=== PATIENT | male | born 1965 | race Two or more races ===

== ENCOUNTER 2024-11-16 08:44 | Inpatient (IN) | payer OTHER ==
[~2024-11-16] VITALS: Ht 182.9 cm; Wt 134.4 kg
--- NOTE | 2024-11-16 08:49 | ECG ---
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
--- NOTE | 2024-11-16 09:08 | DVH ---
EXAM: XY CHEST PORTABLE HISTORY: chest pain COMPARISON: None TECHNIQUE: PA upright view of the chest was performed. FINDINGS: No pneumothorax, consolidative infiltrates, or pulmonary edema. The heart is enlarged. IMPRESSION: Cardiomegaly without evidence of acute intrathoracic process.
[2024-11-16 09:09] LABS: Basophils # (auto) 0.1 10 ^3/uL (0-0.2); Basophils % (auto) 0.9 % (0.0-2.0); Eosinophils # (auto) 0.2 10 ^3/uL (0-0.8); Hematocrit 44.6 % (41.0-53.0); Hemoglobin 14.5 g/dL (13.5-17.5); Lymphocytes # (auto) 1.5 10 ^3/uL (0.4-5.4); Lymphocytes % (auto) 25.5 % (10.0-50.0); Mean Corpuscular Hemoglobin 29.6 pg (28.0-32.0); Mean Corpuscular Hgb Conc. 32.4 g/dL (32.0-36.0); Mean Corpuscular Volume 91.3 fL (80.0-100.0); Monocytes # (auto) 0.7 10 ^3/uL (0-1.3); Monocytes % (auto) 11.5 % (0.0-12.0); Neutrophils # (auto) 3.3 10 ^3/uL (1.6-8.6); Neutrophils % (auto) 58.1 % (37.0-80.0); Nucleated Red Blood Cells % 0.5 %; Platelet Count (auto) 217 10^3/uL (140-450); Red Blood Cells 4.89 10^6/uL (4.5-5.90); Red Cell Distribution Width 15.6 % (11.8-14.3); White Blood Cell 5.7 10^3/uL (4.4-10.8)
[2024-11-16 09:25] LABS: Alanine Aminotransferase 18 U/L (7-40); Alkaline Phosphatase 62 U/L (46-116); Anion Gap 8 (5-15); Aspartate Aminotransferase 17 U/L (13-40); BUN/Creatinine Ratio 7.5 (10.0-20.0); Blood Urea Nitrogen 10 mg/dL (9-23); Calcium 9.3 mg/dL (8.7-10.4); Carbon Dioxide 21 mmol/L (20-31); Magnesium 2.1 mg/dL (1.6-2.6); Potassium 4.1 mmol/L (3.5-5.1); Sodium 140 mmol/L (136-145)
[2024-11-16 09:26] LABS: Albumin 4.5 g/dL (3.2-4.8); Bilirubin, Total 0.5 mg/dL (0.2-1.0); Total Protein 6.7 g/dL (5.7-8.2)
[2024-11-16 09:30] LABS: Chloride 111 mmol/L (98-107); Glucose 119 mg/dL (74-106)
--- NOTE | 2024-11-16 09:38 | ED.PDOC ---
HPI Comments 59 year old male presents to the ED with a chief complaint of chest pain onset today around 07:00. Patient states he woke up today experiencing substernal chest pain with no radiation. Patient has a scheduled hip surgery for this week. PMHx of CAD, HTN. Denies shortness of breath, headache, dizziness, nausea, vomiting, diarrhea, congestion. No other symptoms or modifying factors present at this time. Chief Complaint: Chest Pain Time Seen by MD: 09:00 Reviewed Notes: Medications, Allergies Allergies: Coded Allergies: NO KNOWN ALLERGIES (Unverified , 11/16/24) Information Source: Patient Mode of Arrival: Ambulatory Severity: Moderate Timing: Hours Duration: Since onset Prehospital treatment: None Location: Substernal Radiation: No Radiation Quality: Sharp Cardiac Risk Factors: HTN PE Risk Factors: None History of: Angioplasty Modifying Factors: Nothing Associated Signs and Symptoms: None Past Medical History PAST MEDICAL HISTORY: CAD, HTN Surgical History (Other): angioplasty Family History Family History: Unknown Social History Smoker: Non-Smoker Alcohol: Denies ETOH Use Drugs: Denies Drug Use Lives In: Home Constitutional: denies: chills, diaphoresis, fatigue, fever, malaise, sweats, weakness, others EENTM: denies: blurred vision, double vision, ear bleeding, ear discharge, ear drainage, ear pain, ear ringing, eye pain, eye redness, hearing loss, mouth pain, mouth swelling, nasal discharge, nose bleeding, nose congestion, nose pain, photophobia, tearing, throat pain, throat swelling, voice changes, others Respiratory: denies: cough, hemoptysis, orthopnea, SOB at rest, shortness of breath, SOB with excertion, stridor, wheezing, others Cardiovascular: reports: chest pain; denies: dizzy spells, diaphoresis, Dyspnea on exertion, edema, irregular heart beat, left arm pain, lightheadedness, palpitations, PND, syncope, others Gastrointestinal: denies: abdomen distended, abdominal pain, blood streaked bowels, constipated, diarrhea, dysphagia, difficulty swallowing, hematemesis, melena, nausea, poor appetite, poor fluid intake, rectal bleeding, rectal pain, vomiting, others Genitourinary: denies: burning, dysuria, flank pain, frequency, hematuria, incontinence, penile discharge, penile sore, pain, testicle pain, testicle swelling, urgency, others Neurological: denies: dizziness, fainting, headache, left sided numbness, left sided weakness, numbness, paresthesia, pre-existing deficit, right sided numbness, right sided weakness, seizure, speech problems, tingling, tremors, weakness, others Musculoskeletal: denies: back pain, gout, joint pain, joint swelling, muscle pain, muscle stiffness, neck pain, others Integumetry: denies: bruises, change in color, change in hair/nails, dryness, laceration, lesions, lumps, rash, wounds, others Allergic/Immunocompromised: denies: Difficulty Healing, Frequent Infections, Hives, Itching, others Hematologic/Lymphatic: denies: anemia, blood clots, easy bleeding, easy bruising, swollen glands, others Endocrine: denies: excessive hunger, excessive sweating, excessive thirst, excessive urination, flushing, intolerance to cold, intolerance to heat, unexplained weight gain, unexplained weight loss, others Psychiatric: denies: anxiety, bipolar disorder, depression, hopeless, panic disorder, schizophrenia, sleepless, suicidal, others All Other Systems: Reviewed and Negative Physical Exam General Appearance: Moderate Distress HEENT: Normal ENT Inspection, Pharynx Normal, TMs Normal Neck: Full Range of Motion, Non-Tender, Normal, Normal Inspection Respiratory: Chest Non-Tender, Lungs Clear, No Accessory Muscle Use, No Respiratory Distress, Normal Breath Sounds Cardiovascular: No Edema, No JVD, No Murmur, No Gallop, Normal Peripheral Pulses, Regular Rate/Rhythm Breast Exam: Deferred Gastrointestinal: No Organomegaly, Non Tender, No Pulsatile Mass, Normal Bowel Sounds, Soft Genitalia: Deferred Pelvic: Deferred Rectal: Deferred Extremities: No calf tenderness, Normal capillary refill, Normal inspection, Normal range of motion, Non-tender, No pedal edema Musculoskeletal : Apperance: Normal Neurologic: Alert, machine ii engraver II-XII nml as Tested, No Motor Deficits, Normal Affect, Normal Mood, No Sensory Deficits Cerebellar Function: Normal Reflexes: Normal Skin: Dry, Normal Color, Warm Peripheral Pulses: 3+ Radial (R), 3+ Radial (L) Lymphatic: No Adenopathy Was a procedure done? Was a procedure done?: No CP Differential Dx Differential Diagnosis: A-fib, A-Flutter, Angina, Anxiety / Panic Attack, Atrial Dysrhythmia, Electrolyte Disorder X-Ray, Labs, Meds, VS Vital Signs Date Time Temp Pulse Resp B/P (MAP) Pulse Ox O2 Delivery O2 Flow Rate FiO2 11/16/24 10:56 60 16 130/75 (93) 94 11/16/24 08:59 61 11/16/24 08:48 98.3 61 16 145/91 (109) 98 11/16/24 08:48 67 Lab Test 11/16/24 10:57 11/16/24 10:02 11/16/24 08:52 Range/Units Urine Color Pending Urine Clarity Pending Urine pH Pending Urine Specific [place] Pending Urine Protein Pending Urine Ketones Pending Urine Blood Pending Urine Nitrite Pending Urine Bilirubin Pending Urine Urobilinogen Pending Urine Leukocyte Esterase Pending Urine RBC Pending Urine Microscopic WBC Pending Urine Squamous Epithelial Cells Pending Urine Bacteria Pending Urine Glucose Pending Troponin I High Sensitivity 34 9 </=54 ng/L White Blood Count 5.7 4.4-10.8 10^3/uL Red Blood Count 4.89 4.5-5.90 10^6/uL Hemoglobin 14.5 13.5-17.5 g/dL Hematocrit 44.6 41.0-53.0 % Mean Corpuscular Volume 91.3 80.0-100.0 fL Mean Corpuscular Hemoglobin 29.6 28.0-32.0 pg Mean Corpuscular Hemoglobin Concent 32.4 32.0-36.0 g/dL Red Cell Distribution Width 15.6 H 11.8-14.3 % Platelet Count 217 140-450 10^3/uL Mean Platelet Volume 8.2 6.9-10.8 fL Neutrophils (%) (Auto) 58.1 37.0-80.0 % Lymphocytes (%) (Auto) 25.5 10.0-50.0 % Monocytes (%) (Auto) 11.5 0.0-12.0 % Eosinophils (%) (Auto) 4.0 0.0-7.0 % Basophils (%) (Auto) 0.9 0.0-2.0 % Neutrophils # (Auto) 3.3 1.6-8.6 10 ^3/uL Lymphocytes # (Auto) 1.5 0.4-5.4 10 ^3/uL Monocytes # (Auto) 0.7 0-1.3 10 ^3/uL Eosinophils # (Auto) 0.2 0-0.8 10 ^3/uL Basophils # (Auto) 0.1 0-0.2 10 ^3/uL Nucleated Red Blood Cells 0.5 % Platelet Estimate Adequate Sodium Level 140 136-145 mmol/L Potassium Level 4.1 3.5-5.1 mmol/L Chloride Level 111 H 98-107 mmol/L Carbon Dioxide Level 21 20-31 mmol/L Anion Gap 8 5-15 Blood Urea Nitrogen 10 9-23 mg/dL Creatinine 1.34 H 0.700-1.30 mg/dL Glomerular Filtration Rate Calc 61 >90 mL/min BUN/Creatinine Ratio 7.5 L 10.0-20.0 Serum Glucose 119 H 74-106 mg/dL Calcium Level 9.3 8.7-10.4 mg/dL Magnesium Level 2.1 1.6-2.6 mg/dL Total Bilirubin 0.5 0.2-1.0 mg/dL Aspartate Amino Transferase (AST) 17 13-40 U/L Alanine Aminotransferase (ALT) 18 7-40 U/L Alkaline Phosphatase 62 46-116 U/L Total Protein 6.7 5.7-8.2 g/dL Albumin 4.5 3.2-4.8 g/dL [place] [id number] Ph: [phone] DIAGNOSTIC IMAGING Diagnostic Imaging Report : [id number] Signed PATIENT: EARL STRINGER ACCT: [id number] UNIT: [id number] : 1965 LOC: ER ROOM / BED: / AGE / SEX: 59 / M ADM STATUS: REG ER SERVICE [id number] ORDERING PHYSICIAN: WAYNE MIKE MD PROCEDURE(s): CXRP - CHEST PORTABLE REASON: chest pain ORDER NUMBER(s): [id number], ACCESSION NUMBER(s): [id number] EXAM: XY CHEST PORTABLE HISTORY: chest pain COMPARISON: None TECHNIQUE: PA upright view of the chest was performed. FINDINGS: No pneumothorax, consolidative infiltrates, or pulmonary edema. The heart is enlarged. IMPRESSION: Cardiomegaly without evidence of acute intrathoracic process. ATED BY: RODOLFO GRIFFITH MD DICTATED DATE/TIME: 11/16/24904 SIGNED BY: RODOLFO GRIFFITH MD SIGNED DATE/TIME: 11/16/24904 CC: Patient alert. Complaining of chest pain. Chest x-ray reviewed does not show any acute changes pain Vitals stable. Cardiomegaly. Had previous cardiac insult. EKG reviewed does not show any acute changes. Continues to have chest pain. Was given aspirin. Echocardiogram. Cardiology consultation. Explained to the patient. Time of 1ST Reevaluation: 09:30 Reevaluation 1ST: Unchanged Patient Education/Counseling: Diagnosis, Treatment, Prognosis Family Education/Counseling: No Family Present Additional Information I reviewed the following notes from patient's past medical encounters: The following tests were ordered, and results were reviewed by me: CBC, XY CHES T,, CMP, MAGNESIUM, TROP -x3, EKG -x3, RBC MORPHOLOGY I reviewed and agreed with the following test results read by other providers: TA CHEST I discussed treatment and results with medical personnel and patient Departure 1 Departure Time of Disposition: 12:14 Impression: Primary Impression: Chest pain of unknown etiology Disposition: ADMITTED INPATIENT Admit to: Med Surg Condition: Guarded Critical Care Note Critical Care Time?: No Stability Stability form required: No Heart Score Heart Score: Heart Score Response (Comments) Value History Slightly Suspicious 0 EKG Normal 0 Age 45-64 1 Risk Factors >3 or Hx ASHD 2 Troponin Normal limit 0 Total 3 I personally scribed for WAYNE MIKE MD ([email or web address]) on 11/16/24 at 09:38. Electronically submitted by Ana Elizabeth ([email or web address]). I personally scribed for WAYNE MIKE MD ([email or web address]) on 11/16/24 at 10:14. Electronically submitted by Ana Elizabeth ([email or web address]). WAYNE MIKE MD Nov 16, 2024 09:38
[2024-11-16 10:53] LABS: Platelet Estimate Adequate
[2024-11-16 12:07] LABS: Urine Bacteria None Seen /hpf (None Seen)
[2024-11-16 12:15] LABS: Urine Blood TRACE /uL (Negative); Urine Clarity Clear (Clear); Urine Color Light-Yellow (Yellow); Urine Protein, UAD TRACE (Negative); Urine Specific Gravity 1.012 (1.001-1.035); Urine Squamous Epithelial Cell None Seen /hpf (<5); Urine Urobilinogen Normal (Negative); Urine WBC < 1 /HPF (0-3)
[2024-11-16] MEDS ORDERED: MORPHINE SULFATE INJ 2 MG/ml SYRG IV PRN (15:15)
[2024-11-16] MEDS ORDERED: ACETAMINOPHEN 325 MG TAB PO PRN (15:15)
[2024-11-16] MEDS ORDERED: DOCUSATE SOD 100 MG CAP PO PRN (15:15)
[2024-11-16] MEDS ORDERED: HYDROcodone-ACET 5/325MG TAB PO PRN (15:15)
[2024-11-16] MEDS ORDERED: NITROGLYCERIN 0.4 MG SL TAB SL PRN (15:15)
[2024-11-16] MEDS ORDERED: ONDANSETRON HCL 4 MG/2 ML VIAL IV PRN (15:15)
[2024-11-16] MEDS ORDERED: METO-289 PO (15:24)
[2024-11-16] MEDS ORDERED: ALLO300T2 PO (15:24)
[2024-11-16] MEDS ORDERED: ROSU40TA47 PO (15:24)
[2024-11-16] MEDS ORDERED: AMLO1TAB22 PO (15:24)
--- NOTE | 2024-11-16 15:46 | DVHHP2 ---
History of Present Illness Reason for Visit: Chest Pain History of Present Illness Tim Castro is a 59-year-old male with past medical history of hypertension, hyperlipidemia, CAD, and previous RI x 2, who comes in with complaints of chest pain. Patient states he had a previous RI in July of 2023, and October 2023. He had balloon angioplasty completed prior and possible stent. Patient is taking Plavix and Xarelto. He states his second RI happened after he went off his blood thinners for a procedure. Patient states he has been off his Plavix and Xarelto since 11/12/2024 because he is scheduled to have a left hip replacement this week. Patient states the pain is on the left side of his chest, radiates down his arm and feels like pressure. Cardiovascular: CAD, HTN, hyperipidemia Rheumatologic: Gout Past Surgical History: Other (PTCA) Smoke: No ALCOHOL: rare Drugs: Marijuana Lives: with Family Domestic Violence: Neg Review of Systems Constitutional: No: Fever, Chills, Sweats, Weakness, Malaise, Other Eyes: No: Pain, Vision change, Conjunctivae inflammation, Eyelid inflammation, Other, Redness ENT: No: Ear pain, Ear discharge, Nose pain, Nose discharge, Nose congestion, Mouth pain, Mouth swelling, Throat pain, Throat swelling, Other Respiratory: No: Cough, Dry, Shortness of breath, SOB with excertion, Wheezing, Hemoptysis, Pleuritic Pain, Sputum, Wheezing, Other Cardiovascular: Chest Pain; No: Palpitations, Orthopnea, Paroxysmal Noc. Dyspnea, Edema, Lt Headedness, Other Gastrointestinal: No: Nausea, Vomiting, Abdominal Pain, Diarrhea, Constipation, Melena, Hematochezia, Other Genitourinary: No Dysuria, No Frequency, No Incontinence, No Hematuria, No Retention, No Other Musculoskeletal: No: other, neck pain, shoulder pain, arm pain, back pain, hand pain, leg pain, foot pain Skin: No: Rash, Lesions, Jaundice, Bruising, Other Neurological: No: Weakness, Numbness, Incoordination, Change in speech, Confusion, Seizures, Other Allergies: Coded Allergies: NO KNOWN ALLERGIES (Unverified , 11/16/24) Medications Current Medications Medications Dose Ordered Sig/Tiffanie Route Start Time Stop Time Status Last Admin Dose Admin Sodium Chloride 10 ml Q8HR IV 11/16/24 22:00 Acetaminophen/ Hydrocodone Bitart 1 tab Q4HP PRN PO 11/16/24 15:15 Ondansetron HCl 4 mg Q4HP PRN IV 11/16/24 15:15 Docusate Sodium 100 mg BIDPRN PRN PO 11/16/24 15:15 Acetaminophen 650 mg Q6HP PRN PO 11/16/24 15:15 Nitroglycerin 0.4 mg Q5MINP PRN SL 11/16/24 15:15 Morphine Sulfate 2 mg Q30M PRN IV 11/16/24 15:15 Exam Vital Signs Vital Signs Date Time Temp Pulse Resp B/P (MAP) Pulse Ox O2 Delivery O2 Flow Rate FiO2 11/16/24 13:49 67 16 139/84 (102) 98 11/16/24 08:48 98.3 General Appearance: Alert, Oriented X3, Cooperative, moderate distress HEENT: Atraumatic, PERRLA Respiratory: Clear to auscultation Cardiovascular: Regular rate, Normal S1 Abdominal: Normal bowel sounds, Soft, No tenderness Extremities: No clubbing, No cyanosis, No edema Skin: No rashes, No breakdown, No significant lesion Neuro: Normal speech, Strength at 5/5 X4 ext, Other (walks with a limp due to left hip pain) Psych/Mental Status: Mental status NL, Mood NL Labs/Xrays Labs Test 11/16/24 15:03 11/16/24 10:57 11/16/24 08:52 Range/Units Urine Color Light-yellow Yellow Urine Clarity Clear Clear Urine pH 7.0 5.0-9.0 Urine Specific [place] 1.012 1.001-1.035 Urine Protein Trace H Negative Urine Ketones Negative Negative Urine Blood Trace H Negative /uL Urine Nitrite Negative Negative Urine Bilirubin Negative Negative Urine Urobilinogen Normal Negative mg/dL Urine Leukocyte Esterase Negative Negative /uL Urine RBC 1 0 - 3 /hpf Urine Microscopic WBC < 1 0-3 /HPF Urine Squamous Epithelial Cells None seen <5 /hpf Urine Bacteria None seen None Seen /hpf Urine Glucose Normal Normal mg/dL White Blood Count 5.7 4.4-10.8 10^3/uL Red Blood Count 4.89 4.5-5.90 10^6/uL Hemoglobin 14.5 13.5-17.5 g/dL Hematocrit 44.6 41.0-53.0 % Mean Corpuscular Volume 91.3 80.0-100.0 fL Mean Corpuscular Hemoglobin 29.6 28.0-32.0 pg Mean Corpuscular Hemoglobin Concent 32.4 32.0-36.0 g/dL Red Cell Distribution Width 15.6 H 11.8-14.3 % Platelet Count 217 140-450 10^3/uL Mean Platelet Volume 8.2 6.9-10.8 fL Neutrophils (%) (Auto) 58.1 37.0-80.0 % Lymphocytes (%) (Auto) 25.5 10.0-50.0 % Monocytes (%) (Auto) 11.5 0.0-12.0 % Eosinophils (%) (Auto) 4.0 0.0-7.0 % Basophils (%) (Auto) 0.9 0.0-2.0 % Neutrophils # (Auto) 3.3 1.6-8.6 10 ^3/uL Lymphocytes # (Auto) 1.5 0.4-5.4 10 ^3/uL Monocytes # (Auto) 0.7 0-1.3 10 ^3/uL Eosinophils # (Auto) 0.2 0-0.8 10 ^3/uL Basophils # (Auto) 0.1 0-0.2 10 ^3/uL Nucleated Red Blood Cells 0.5 % Platelet Estimate Adequate Sodium Level 140 136-145 mmol/L Potassium Level 4.1 3.5-5.1 mmol/L Chloride Level 111 H 98-107 mmol/L Carbon Dioxide Level 21 20-31 mmol/L Anion Gap 8 5-15 Blood Urea Nitrogen 10 9-23 mg/dL Creatinine 1.34 H 0.700-1.30 mg/dL Glomerular Filtration Rate Calc 61 >90 mL/min BUN/Creatinine Ratio 7.5 L 10.0-20.0 Serum Glucose 119 H 74-106 mg/dL Calcium Level 9.3 8.7-10.4 mg/dL Magnesium Level 2.1 1.6-2.6 mg/dL Total Bilirubin 0.5 0.2-1.0 mg/dL Aspartate Amino Transferase (AST) 17 13-40 U/L Alanine Aminotransferase (ALT) 18 7-40 U/L Alkaline Phosphatase 62 46-116 U/L Total Protein 6.7 5.7-8.2 g/dL Albumin 4.5 3.2-4.8 g/dL EXAM: XY CHEST PORTABLE TECHNIQUE: PA upright view of the chest was performed. FINDINGS: No pneumothorax, consolidative infiltrates, or pulmonary edema. The heart is enlarged. IMPRESSION: Cardiomegaly without evidence of acute intrathoracic process. Assessment/Plan Assessment/Plan Assessment: ACS (acute coronary syndrome), Elevated troponin, Hypertension, Gout, CAD, Plan: Admit to Tele, Cardiology consult, Trend troponin, ACS protocol, ASA and statin, Home medications reconciled, Plan discussed with: Patient My Orders Orders - ANDREW BARAHONA Procedure Category Date Status Time Troponin-I Hs LAB 11/16/24 In Process 14:21 Troponin-I Hs LAB 11/16/24 Logged 15:21 Troponin-I Hs LAB 11/16/24 Logged 17:21 Admit ADMIT 11/16/24 Transmitted 15:11 Code Status CODE 11/16/24 Transmitted 15:11 Sodium Chloride Lock PHA 11/16/24 In Process (Saline Lock Ns) 22:00 Hydrocodone-Acet PHA 11/16/24 In Process 5/325mg Tab ([place] 15:15 Ondansetron Hcl PHA 11/16/24 In Process (Zofran) 15:15 Docusate Sodium PHA 11/16/24 In Process Capsule (Colace 15:15 Complete Blood Count LAB 11/17/24 Verified 04:00 Comprehensive LAB 11/17/24 Verified Metabolic Panel 04:00 Cardiac DIET 11/16/24 Transmitted Diet-2gna,Lofat,Lochol Dinner Condition: Serious BIGG 11/16/24 In Process 15:11 Acetaminophen Tablet PHA 11/16/24 In Process (Tylenol Tablet) 15:15 Nitroglycerin PHA 11/16/24 In Process Sublingual (Ntrostat 15:15 Morphine Sulfate PHA 11/16/24 In Process Injection 15:15 Stat Ekg For Chest BIGG 11/16/24 In Process Pain 15:11 Notify Md Of Changes BIGG 11/16/24 In Process From Base 15:11 Stock Receiver For BIGG 11/16/24 In Process 24 Hours 15:11 Emergency Dysrhythmia BIGG 11/16/24 In Process Protocol 15:11 Rhythm Strips Once BIGG 11/16/24 In Process Every Shift 15:11 Oxygen By Nasal RT 11/16/24 Transmitted Cannula 15:11 * Cardiology Consult CONS 11/16/24 Transmitted 15:11 Amlodipine Tablet PHA 11/17/24 Transmitted (Norvasc Tablet) 10:00 Metoprolol Xl PHA 11/17/24 Transmitted Succinate (Toprol Xl) 10:00 (Nf) Allopurinol PHA 11/17/24 Transmitted 10:00 (Nf) Rosuvastatin PHA 11/16/24 Transmitted Calcium 22:00 Date of Service: Nov 16, 2024 Billing Provider: ANDREW BARAHONA Common Visit Codes: [id number] INP/OBS CARE (MOD) ANDREW BARAHONA Nov 16, 2024 15:46
[2024-11-16] MEDS: ASPirin-EC 325mg tab PO ONE (16:29)
--- NOTE | 2024-11-16 17:19 | ECG ---
[facility] Test Date: 2024-11-16 Test Time: 17:18:39 Pat Name: EARL STRINGER Department: 12 Room: [address] [place] [address] A Gender: M Blending Line Attendant: JANET : 1965 Requested By: WAYNE MIKE Order Number: [id number] Reading MD: Mitul Castillo Measurements Intervals [place] Rate: 56 P: 39 ID: [id number] QRS: 51 QRSD: 111 T: -18 QT: 460 QTc: 444 Interpretive Statements Sinus rhythm Ventricular premature complex Low voltage, precordial leads Nonspecific T abnormalities, inferior leads Electronically Signed On 11-16-2024 21:20:22 PST by Mitul Castillo Please click the below link to view image of tracing.
[2024-11-16 17:20] VITALS: PULSE 58; RESP 17; O2SAT 98
--- NOTE | 2024-11-16 17:49 | DVHINCON2 ---
Date Seen: Nov 16, 2024 Referring Physician JUANA Upton Reason for Consultation Elevated trop History of Present Illness This is a pleasant 59-year-old man who presented to the emergency room with a chief complaint of chest pain since 0700 today. Describes his chest pain as left-sided, nonradiating, non provoked, constant in nature, pressure-like, and associated with mild shortness of breath. The patient underwent multiple 12 lead electrocardiogram revealing progressive ST segment depression to inferior leads. Serial troponin levels are trending up with latest in the 600s ng/L. He has a significant medical history for coronary artery disease including a cardiac catheterization with catheter based intervention including two JENNIFER in a hospital in [place] on 2022 and cardiac catheterization with balloon angioplasty in [place] on 10/2023 and current Plavix therapy. The patient also reports a history of an unspecified blood clot for which he takes Xarelto. Follows up in the outpatient setting with [facility] Dr. Steward with latest appointment 10 days ago. States he is compliant with his medical therapy at home. Other medical history includes hypertension, dyslipidemia, gout, severe right hip arthritis awaiting surgical repair, obesity, and occasional alcohol/cannabinoid use. Past Medical History Past medical history reviewed. No other significant than mentioned above. Past Surgical History PTCA with balloon angioplasty, 10/2023 PTCA including two JENNIFER, 2022 Family History Family history reviewed. Social History See HPI. Allergies: Coded Allergies: NO KNOWN ALLERGIES (Unverified , 11/16/24) Home Meds Reported Medications Allopurinol (Allopurinol) 300 Mg Tab, 1 TAB PO DAILY 11/16/24 Metoprolol Succinate (Metoprolol Succinate Er) 50 Mg Tab, 1 TAB PO DAILY 11/16/24 Rosuvastatin Calcium (Rosuvastatin Calcium) 40 Mg Tab, 1 TAB PO HS 11/16/24 Amlodipine Besylate (Amlodipine Besylate) 5 Mg Tab, 1 TAB PO DAILY 11/16/24 Home Meds Home medications reviewed. Current Medications Current Medications Medications (Trade) Dose Ordered Sig/Tiffanie Route PRN Reason Start Time Stop Time Status Last Admin Sodium Chloride (Saline Lock Ns) 10 ml Q8HR IV 11/16/24 22:00 Acetaminophen/ Hydrocodone Bitart (Gem 5/325MG Tab) 1 tab Q4HP PRN PO MODERATE PAIN (4-6 PAIN SCALE) 11/16/24 15:15 Ondansetron HCl (Zofran) 4 mg Q4HP PRN IV NAUSEA / VOMITING 11/16/24 15:15 Docusate Sodium (Colace Capsule) 100 mg BIDPRN PRN PO FOR CONSTIPATION 11/16/24 15:15 Acetaminophen (Tylenol Tablet) 650 mg Q6HP PRN PO PAIN SCALE 1-3 OR TEMP>100.4 11/16/24 15:15 Nitroglycerin (Ntrostat Sublingual) 0.4 mg Q5MINP PRN SL FOR CHEST PAIN 11/16/24 15:15 Morphine Sulfate 2 mg Q30M PRN IV FOR CHEST PAIN 11/16/24 15:15 Amlodipine Besylate (Norvasc Tablet) 5 mg DAILY PO 11/17/24 10:00 Metoprolol Succinate (Toprol Xl) 50 mg DAILY PO 11/17/24 10:00 Allopurinol (Zyloprim Tablet) 300 mg DAILY PO 11/17/24 10:00 Atorvastatin Calcium (Lipitor) 80 mg HS PO 11/16/24 22:00 Aspirin 81 mg DAILY PO 11/17/24 10:00 Review of Systems Constitutional: No symptom reported Ears, Nose, & Throat: No symptom reported Eyes: No symptom reported Neurological: No symptoms reported Pulmonary/Respiratory: No symptom reported Cardiovascular: Chest pain Gastrointestinal: No symptom reported Genitourinary: No symptom reported Musculoskeletal: No symptom reported Skin: No symptom reported Psychiatric: No symptom reported Endocrine: No symptom reported Hemotologic/Lymphatic: No symptom reported Vital Signs Vital Signs Date Time Temp Pulse Resp B/P (MAP) Pulse Ox O2 Delivery O2 Flow Rate FiO2 11/16/24 17:18 56 11/16/24 16:20 17 98 Room Air 11/16/24 16:20 98.7 117/82 (94) 98.7 Physical Exam General Appearance: Cooperative. Well developed. Obese. In no acute distress Head Exam: Normal inspection Neck Exam: Normal inspection. Non-tender. Normal alignment Pulmonary/Respiratory: Chest non-tender. Clear bilateral breath sounds Cardiovascular/Chest: Regular rate and rhythm. S1, S2. Sinus rhythm with progressive ST segment depression to inferior leads. No murmurs. No JVD. Peripheral Pulses: 2+ Radial (R). 2+ Radial (L). 2+ Pedal (R). 2+ Pedal (L) Abdominal Exam: Normal bowel sounds. Soft. Nontender. No hepatospenomegaly. No masses Ankle Exam: Negative ankle edema Lower extremities: Negative lower extremity edema Neuro/Mental Status: A&O x4. Coherent Thoughts/Psych: Normal thought pattern. Appropriate mood and affect. Good judgement and insight Appearance: In no acute distress Skin Exam: Normal inspection. Normal color. Warm. Dry Labs/Diagnostic Data Labs Test 11/16/24 16:06 11/16/24 10:57 11/16/24 08:52 Range/Units Troponin I High Sensitivity 602 *H </=54 ng/L Urine Color Light-yellow Yellow Urine Clarity Clear Clear Urine pH 7.0 5.0-9.0 Urine Specific [place] 1.012 1.001-1.035 Urine Protein Trace H Negative Urine Ketones Negative Negative Urine Blood Trace H Negative /uL Urine Nitrite Negative Negative Urine Bilirubin Negative Negative Urine Urobilinogen Normal Negative mg/dL Urine Leukocyte Esterase Negative Negative /uL Urine RBC 1 0 - 3 /hpf Urine Microscopic WBC < 1 0-3 /HPF Urine Squamous Epithelial Cells None seen <5 /hpf Urine Bacteria None seen None Seen /hpf Urine Glucose Normal Normal mg/dL White Blood Count 5.7 4.4-10.8 10^3/uL Red Blood Count 4.89 4.5-5.90 10^6/uL Hemoglobin 14.5 13.5-17.5 g/dL Hematocrit 44.6 41.0-53.0 % Mean Corpuscular Volume 91.3 80.0-100.0 fL Mean Corpuscular Hemoglobin 29.6 28.0-32.0 pg Mean Corpuscular Hemoglobin Concent 32.4 32.0-36.0 g/dL Red Cell Distribution Width 15.6 H 11.8-14.3 % Platelet Count 217 140-450 10^3/uL Mean Platelet Volume 8.2 6.9-10.8 fL Neutrophils (%) (Auto) 58.1 37.0-80.0 % Lymphocytes (%) (Auto) 25.5 10.0-50.0 % Monocytes (%) (Auto) 11.5 0.0-12.0 % Eosinophils (%) (Auto) 4.0 0.0-7.0 % Basophils (%) (Auto) 0.9 0.0-2.0 % Neutrophils # (Auto) 3.3 1.6-8.6 10 ^3/uL Lymphocytes # (Auto) 1.5 0.4-5.4 10 ^3/uL Monocytes # (Auto) 0.7 0-1.3 10 ^3/uL Eosinophils # (Auto) 0.2 0-0.8 10 ^3/uL Basophils # (Auto) 0.1 0-0.2 10 ^3/uL Nucleated Red Blood Cells 0.5 % Platelet Estimate Adequate Sodium Level 140 136-145 mmol/L Potassium Level 4.1 3.5-5.1 mmol/L Chloride Level 111 H 98-107 mmol/L Carbon Dioxide Level 21 20-31 mmol/L Anion Gap 8 5-15 Blood Urea Nitrogen 10 9-23 mg/dL Creatinine 1.34 H 0.700-1.30 mg/dL Glomerular Filtration Rate Calc 61 >90 mL/min BUN/Creatinine Ratio 7.5 L 10.0-20.0 Serum Glucose 119 H 74-106 mg/dL Calcium Level 9.3 8.7-10.4 mg/dL Magnesium Level 2.1 1.6-2.6 mg/dL Total Bilirubin 0.5 0.2-1.0 mg/dL Aspartate Amino Transferase (AST) 17 13-40 U/L Alanine Aminotransferase (ALT) 18 7-40 U/L Alkaline Phosphatase 62 46-116 U/L Total Protein 6.7 5.7-8.2 g/dL Albumin 4.5 3.2-4.8 g/dL Assessment Non ST-elevation myocardial infarction Rule out progressive coronary artery disease Severe CAD s/p PTCA including 2DES and balloon angioplasty, on Plavix therapy Unspecified history of blood clot, on Xarelto therapy Hypertension Dyslipidemia Severe right hip arthritis (awaiting repair) Morbid obesity Plan/Recommendation (Dr. Castillo) Scheduled for cardiac catheterization and coronary angiogram at first available. All risks and benefits of the procedure were discussed with the patient who agrees to proceed with intervention. All questions answered. In the meantime we will continue further cardiac evaluation with a transthoracic echocardiogram to rule out structural heart disease. Initiate heparin drip per pharmacy protocol. Continue single-antiplatelet therapy, lipid lowering agent, and beta-trevon. Trend troponin levels. Monitor ECG changes closely and notify. Continue chest pain protocol. Thank you for allowing us to participate in this patient's care. Please call if you have any questions or concerns. Critical care time: 40 min. This medical document was created using an electronic medical record system with voice recognition software and computerized dictation system. Although this document has been carefully reviewed, there might still be some phonetic and typographical errors. Occasional wrong-word or ``sound-alike substitutions may have occurred due to the inherent limitations of voice recognition software. These areas are purely typographical due to imperfections of the software programs and do not reflect any compromise in the patient's medical care. Please read the chart carefully and recognize, using context, where these substitutions have occurred. Plan discussed with: Patient, Other NYHA Physical activity limitations: NA Date of Service: Nov 16, 2024 Billing Provider: CLEMENCIA WEEMS Cardiology Common Codes: 45465-ULDGONBG CARE 30-74 MIN CLEMENCIA WEEMS Nov 16, 2024 17:49
[2024-11-16] MEDS ORDERED: hydrALAZINE HCL 20 MG/ML VL IV PRN (18:00)
[2024-11-16 18:53] LABS: Triglycerides 63 mg/dL (< 150)
[2024-11-16 18:54] LABS: LDL Cholesterol 40 mg/dL (< 100)
[2024-11-16 18:55] LABS: Cholesterol 102 mg/dL (< 200); HDL Cholesterol 50 mg/dL (40-59)
[2024-11-16 19:36] LABS: INR 1.02 (0.9-1.15); Partial Thromboplastin Time 29.6 SEC (24.5-34.5); Prothrombin Time 10.8 sec (9.3-11.8)
[2024-11-16] MEDS: HEPARIN SODIUM (PORCINE) 5000 UNITS/ML 1ML VIAL IV ONE (19:46)
[2024-11-16] MEDS: HEPARIN DRIP/D5W 100UNITS/ML 250 ML IV SCH (19:48)
[2024-11-16] MEDS: SODIUM CHLOR 0.9% PF (SALINE LOCK) 10ML VIAL/SYR IV SCH (21:55)
[2024-11-16] MEDS: DORZOLAMIDE HCL 2% OPTH(EYE) SOL 10ML EACHEYE SCH (22:00)
[2024-11-16] MEDS: ATORVASTATIN 20 MG TAB PO SCH (22:07)
[2024-11-17] VITALS (10 sets, daily range): BP systolic 115–148; BP diastolic 56–86; PULSE 55–90; RESP 13–20; TEMP 97–98.3; O2SAT 91–97
[2024-11-17] MEDS: PANTOPRAZOLE 40 MG TAB PO ONE (00:29)
[2024-11-17 02:39] LABS: INR 1.02 (0.9-1.15); Prothrombin Time 10.8 sec (9.3-11.8)
[2024-11-17] MEDS: HEPARIN DRIP/D5W 100UNITS/ML 250 ML IV SCH (03:22)
[2024-11-17] MEDS ORDERED: SACU1TAB (04:17)
[2024-11-17] MEDS ORDERED: ROSU20TA56 (04:17)
[2024-11-17] MEDS ORDERED: RIV20T (04:17)
[2024-11-17] MEDS ORDERED: CLOP75TA70 (04:17)
[2024-11-17] MEDS ORDERED: EMPA1TAB PO (04:17)
[2024-11-17] MEDS: ALLOPURINOL 100 MG TAB PO SCH (07:33)
[2024-11-17] MEDS: CLOPIDOGREL BISULFATE 75 MG TAB PO SCH (07:33)
[2024-11-17 07:48] LABS: Basophils # (auto) 0 10 ^3/uL (0-0.2); Basophils % (auto) 0.4 % (0.0-2.0); Eosinophils # (auto) 0.2 10 ^3/uL (0-0.8); Eosinophils % (auto) 3.2 % (0.0-7.0); Hematocrit 41.4 % (41.0-53.0); Hemoglobin 13.8 g/dL (13.5-17.5); Lymphocytes # (auto) 1.8 10 ^3/uL (0.4-5.4); Lymphocytes % (auto) 29.4 % (10.0-50.0); Mean Corpuscular Hgb Conc. 33.2 g/dL (32.0-36.0); Mean Corpuscular Volume 90.2 fL (80.0-100.0); Monocytes # (auto) 0.7 10 ^3/uL (0-1.3); Monocytes % (auto) 11.7 % (0.0-12.0); Neutrophils # (auto) 3.4 10 ^3/uL (1.6-8.6); Neutrophils % (auto) 55.3 % (37.0-80.0); Platelet Count (auto) 186 10^3/uL (140-450); Red Blood Cells 4.59 10^6/uL (4.5-5.90); White Blood Cell 6.1 10^3/uL (4.4-10.8)
[2024-11-17] MEDS: METOPROLOL SUCCINATE XL 50 MG TAB PO SCH (08:13)
[2024-11-17 09:02] LABS: Alanine Aminotransferase 18 U/L (7-40); Albumin 3.9 g/dL (3.2-4.8); Alkaline Phosphatase 55 U/L (46-116); Calcium 9.5 mg/dL (8.7-10.4)
[2024-11-17 09:03] LABS: Anion Gap 8 (5-15); Aspartate Aminotransferase 29 U/L (13-40); BUN/Creatinine Ratio 10.2 (10.0-20.0); Bilirubin, Total 0.7 mg/dL (0.2-1.0); Blood Urea Nitrogen 12 mg/dL (9-23); Carbon Dioxide 21 mmol/L (20-31); Sodium 140 mmol/L (136-145); Total Protein 6.2 g/dL (5.7-8.2)
[2024-11-17 09:08] LABS: Chloride 111 mmol/L (98-107); Glucose 107 mg/dL (74-106)
[2024-11-17] MEDS ORDERED: ASPirin 81 mg TAB PO SCH (10:00)
[2024-11-17] MEDS ORDERED: amLODIPine BESYLATE 5 MG TAB PO SCH (10:00)
[2024-11-17 10:56] LABS: INR 1.03 (0.9-1.15); Partial Thromboplastin Time 51.8 SEC (24.5-34.5); Prothrombin Time 10.9 sec (9.3-11.8)
[2024-11-17] MEDS: VERAPAMIL 2.5MG/ML INJ 2ML VIAL IV ONE (11:34)
[2024-11-17] MEDS: fentaNYL CITRATE 100 MCG/2 ML VL ONE (11:34)
[2024-11-17] MEDS: HEPARIN SODIUM (PORCINE) 5000 UNITS/ML 1ML VIAL ONE ×3 (11:34→13:35)
[2024-11-17] MEDS: ANGIOMAX 250 MG VIAL IV ONE (11:34)
[2024-11-17] MEDS: MIDAZOLAM HCL 2MG/2ML 2ml VIAL (1mg/ml) ONE (11:35)
[2024-11-17] MEDS: LIDOCAINE 2%HCL (LOCAL ANESTH.) INJ 20ML MDV ONE (11:35)
[2024-11-17] MEDS: SODIUM CHL 0.9% 0 ML ONE (11:35)
[2024-11-17] MEDS: IODIXANOL 320MG/ML 100ML BTL IV ONE ×3 (11:47→13:40)
[2024-11-17] MEDS: HEPARIN IN NS 1000Units/500mL 1,500 ML ONE (11:47)
[2024-11-17] MEDS: CLOPIDOGREL BISULFATE 75 MG TAB ONE (14:10)
--- NOTE | 2024-11-17 14:20 | DVHOP2 ---
Operative Report - 2 Report Details Date: 11/17/24 Preop Diagnosis: Non ST-elevation HI Postop Diagnosis: Successful intravascular ultrasound evaluation PTCA and stenting of the left anterior descending coronary artery. Thrombectomy of the distal RCA and posterolateral branch. Successful PTCA and stenting of the posterolateral branch. Surgeon: Juan Luis Castillo MD Anesthesiologist: Conscious sedation Anesthesia: Mac, Local Consent: The patient was informed of the risks and benefits of the procedure. These include but are not limited to complications of anesthesia, postoperative infection, incomplete relief of symptoms, recurrence of symptoms, damage to blood vessels, nerves and tendons, deep venous thrombosis, pulmonary embolism and possible need for repeat surgery in the future. Complications: No complications Estimated Blood Loss: 15 cc Findings: Significant CAD. Lad and RCA lesions Indications for Surgery: Non STEMI. Chest pain. Name of Procedure Performed Bilateral cine coronary angiography. Left ventriculography. Intravascular ultrasound evaluation of the LAD. PTCA and stenting of the LAD. Thrombectomy of the distal RCA. PTCA and stenting of the distal RCA Procedure Details Procedure Details: Prior local anesthesia with 2% lidocaine to the right wrist and full informed consent obtained the patient was prepped and draped in the usual fashion followed by placement of a six Yak[place] sheath into the radial artery which a Phil catheter was used for ventriculography and cannulation of both right and left coronary ostia without complications. We then placed a 4-0 EBU guide into the LAD to perform angioplasty of the LAD and also of the RCA. See details below. Hemodynamics: Aortic blood pressure was 110/70 end-diastolic pressure was five. There was no gradient across the aortic valve on pullback. Coronary anatomy: The RCA is a large ectatic vessel. It is 100% occluded distally. The PDA is occluded. The posterolateral branches are occluded. There appears to be thrombus and haziness in the distal RCA. Left main is large and normal. Left anterior descending is a large with moderately ectasia noted. There is a 90% stenosis at the mid LAD. Diagonals are also moderately disease with a 2nd diagonal showing a 50-60% stenosis in his mid section. The circumflex is a large vessel with two obtuse marginal branches. The 2nd obtuse marginal has a 50-60% stenosis in its mid section collateralization is noted to the posterolateral branch with the distal RCA. The PDA is not visualized. Ventriculography in the ADAMS projection shows inferobasal akinesis. Global hypokinesis. EF is about 30%. Angioplasty was performed for which a 4-0 EBU guide was then placed into the LAD. A Specter wire placed across the lesion into the distal LAD and a 2.5 x 12 mm Medtronic balloon was used. Pre dilation occurred. We then placed a intr avascular ultrasound device by [employer]ymotion. We noted the artery to be about 4.5-5 mm. We placed a 4.5 x 12 mm stent across the left anterior descending coronary artery successfully. We then removed the guide from the LAD and placed it into the RCA. We then used a Guideliner to focus on conservation of contrast distally. We were able to pass the guidewire across the area of stenosis into the posterolateral branch. We then took a CAT Rx penumbra device and performed thrombectomy of the distal RCA and proximal posterolateral branch. We pre- dilated with a 2.5 balloon and placed a 2.5 x 12 mm stent into the segment between the distal RCA and proximal posterolateral branch. We successfully revascularize posterolateral branch however sluggish flow. The PDA was not visualized. Impression successful PTCA and stenting of the LAD and RCA with successful intravascular evaluation of the LAD and thrombectomy of the RCA. Diminished ejection fraction. Normal end-diastolic pressures. Recommendations: dual antiplatelet therapy with afterload reduction and risk factor modification to continue. Condition Fair Disposition Still a Patient Date of Service: Nov 17, 2024 Billing Provider: JUAN LUIS CASTILLO Sr., MD Cardiology Common Codes: 96160-RFMVEGH INP/OBS CARE (High) Cardiology Procedure Codes: 91959-ROKFZH VESSEL W/I VASC FAM, 40409 -PTCA W/STENT PLACEMENT, 56832-RRFV ADD CORONARY BRANCH, 72222-BZVS FOR STEMI W/STENT (thrombectomy and IVUS), 75475-GNBV ADD COR ART/BRNCH/GRFT, 05210-XJQK HEART CATH W/INTRA INJ Peripheral Procedures Codes: 49844-VVMUQ PLACMNT W/ANGIOPLASTY JUAN LUIS CASTILLO Sr., MD Nov 17, 2024 14:20
[2024-11-17] MEDS: SODIUM CHL 0.9% 500 ML IV ONE (14:30)
--- NOTE | 2024-11-17 15:39 | DVHPN2 ---
Reviewed: Care Plan, H&P, Labs, Medications, Previous Orders, Radiology Changes from previous H/P or p: No Changes Eyes: No Pain, No Vision change, No Conjunctivae inflammation, No Eyelid inflammation, No Other, No Redness ENT: No Ear pain, No Ear discharge, No Nose pain, No Nose discharge, No Nose congestion, No Mouth pain, No Mouth swelling, No Throat pain, No Throat swelling, No Other Cardiovascular: Chest Pain; No Palpitations, No Orthopnea, No Paroxysmal Noc. Dyspnea, No Edema, No Lt Headedness, No Other Respiratory: No Cough, No Dry, No Shortness of breath, No SOB with excertion, No Wheezing, No Hemoptysis, No Pleuritic Pain, No Sputum, No Other Gastrointestinal: No Nausea, No Vomiting, No Abdominal Pain, No Diarrhea, No Constipation, No Melena, No Hematochezia, No Other Genitourinary: No Dysuria, No Frequency, No Incontinence, No Hematuria, No Retention, No Other Musculoskeletal: No other, No neck pain, No shoulder pain, No arm pain, No back pain, No hand pain, No leg pain, No foot pain Skin: No Rash, No Lesions, No Jaundice, No Bruising, No Other Objective Vitals Vital Signs Date Time Temp Pulse Resp B/P (MAP) Pulse Ox O2 Delivery O2 Flow Rate FiO2 11/17/24 09:54 98.3 56 18 127/75 (92) 97 98.3 11/17/24 08:00 Room Air* 0 21 Intake/Output Intake and Output 11/17/24 07:00 Intake Total 70 ml Balance 70 ml Intake Oral 0 ml IV Total 70 ml # Voids 1 Medications Current Medications Medications Dose Ordered Sig/Tiffanie Route Start Time Stop Time Status Last Admin Dose Admin Sodium Chloride 10 ml Q8HR IV 11/16/24 22:00 11/17/24 08:00 10 ML Acetaminophen/ Hydrocodone Bitart 1 tab Q4HP PRN PO 11/16/24 15:15 Ondansetron HCl 4 mg Q4HP PRN IV 11/16/24 15:15 Docusate Sodium 100 mg BIDPRN PRN PO 11/16/24 15:15 Acetaminophen 650 mg Q6HP PRN PO 11/16/24 15:15 Nitroglycerin 0.4 mg Q5MINP PRN SL 11/16/24 15:15 Morphine Sulfate 2 mg Q30M PRN IV 11/16/24 15:15 Metoprolol Succinate 50 mg DAILY PO 11/17/24 10:00 Allopurinol 300 mg DAILY PO 11/17/24 10:00 Atorvastatin Calcium 80 mg HS PO 11/16/24 22:00 11/16/24 22:07 80 MG Clopidogrel Bisulfate 75 mg DAILY PO 11/17/24 10:00 Hydralazine HCl 10 mg Q6HP PRN IV 11/16/24 18:00 Dorzolamide HCl 1 drop TID EACHEYE 11/16/24 22:00 Laboratory Results Laboratory Tests 11/17/24 06:45 Chemistry Test 11/17/24 06:45 Albumin 3.9 g/dL (3.2-4.8) Calcium Level 9.5 mg/dL (8.7-10.4) Total Protein 6.2 g/dL (5.7-8.2) Coagulation Test 11/16/24 19:02 11/17/24 02:12 11/17/24 10:10 Prothrombin Time 10.8 sec (9.3-11.8) 10.8 sec (9.3-11.8) 10.9 sec (9.3-11.8) Prothrombin Time INR 1.02 (0.9-1.15) 1.02 (0.9-1.15) 1.03 (0.9-1.15) Activated Partial Thromboplast Time 29.6 SEC (24.5-34.5) 45.0 SEC (24.5-34.5) H 51.8 SEC (24.5-34.5) H LFT Test 11/17/24 06:45 Alanine Aminotransferase (ALT) 18 U/L (7-40) Alkaline Phosphatase 55 U/L (46-116) Aspartate Amino Transferase (AST) 29 U/L (13-40) Total Bilirubin 0.7 mg/dL (0.2-1.0) Urinalysis Test 11/16/24 10:57 Urine Color Light-yellow (Yellow) Urine Clarity Clear (Clear) Urine pH 7.0 (5.0-9.0) Urine Specific [place] 1.012 (1.001-1.035) Urine Protein Trace (Negative) H Urine Ketones Negative (Negative) Urine Blood Trace /uL (Negative) H Urine Nitrite Negative (Negative) Urine Bilirubin Negative (Negative) Urine Urobilinogen Normal mg/dL (Negative) Urine Leukocyte Esterase Negative /uL (Negative) Urine RBC 1 /hpf (0 - 3) Urine Microscopic WBC < 1 /HPF (0-3) Urine Squamous Epithelial Cells None seen /hpf (<5) Urine Bacteria None seen /hpf (None Seen) Urine Glucose Normal mg/dL (Normal) Labs and/or images reviewed: Labs reviewed by me, Image(s) reviewed by me Assessment/Plan Assessment/Plan Non ST-elevation myocardial infarction> status post left heart catheterization by Dr. Castillo with stenting of LAD, thrombectomy of the distal RCA and PTCA and stenting of distal RCA on 11/17/2024 Rule out progressive coronary artery disease Severe CAD s/p PTCA including 2DES and balloon angioplasty, on Plavix therapy Unspecified history of blood clot, on Xarelto therapy Hypertension Dyslipidemia Severe right hip arthritis (awaiting repair) Morbid obesity Time Spent 40 minutes Advanced care planning time 20 minutes Patient is full code Plan discussed with: Patient Date of Service: Nov 17, 2024 Billing Provider: DORY WILCOX MD Common Visit Codes: [id number] INP/OBS CARE(HIGH) Secondary Visit Codes: [id number] CARE PLAN 30 MINUTES DORY WILCOX MD Nov 17, 2024 15:39
[2024-11-17 17:31] LABS: INR 1.03 (0.9-1.15); Partial Thromboplastin Time 48.7 SEC (24.5-34.5); Prothrombin Time 10.9 sec (9.3-11.8)
--- NOTE | 2024-11-17 18:29 | DVHSR ---
APPROVED REPORT EXAM: Two-dimensional and M-mode echocardiogram with Doppler and color Doppler. Blood Pressure: 131/56 mmHg INDICATION NSTEMI RISK FACTORS Obesity: Height: 6'0, Weight: 299 DIMENSIONS LVDd5.6 (3.8-5.7cm)LA (2D)5.3 (1.9-4.0cm)Aortic Root4.2 (2.0-3.7cm) LVDs4.3 (2.5-4.0cm)LA (MM) (1.9-4.0cm)Aortic Cusp Exc1.9 (1.5-2.0cm) EF (%) 45.0 (55-70%)Rt. Atrium4.7 (1.9-4.0cm)Asc. Aorta3.8 cm IVSd1.0 (0.7-1.1cm)RV (D) (1.8-2.4cm) PWd0.7 (0.7-1.1cm) Mitral Valve MitralMitral Stenosis E wave0.53m/sMV Mean GR.mmHg A wave0.89m/sMV Peak GR.mmHg E/A ratio0.62D MVAcm2 DECEL [id number] 1/2 Timems Aortic Valve Aortic ValveAortic Stenosis V11.05m/Gibran Mean GR.4mmHg V21.22m/Gibran Peak GR.6mmHg LVOT Diameter2.4 (1.8-2.4cm)Doppler AVA3.89cm2 AI P 1/2 Jrwd497.18ms Pulmonic Valve V20.83m/s Tricuspid Valve TR Velocity2.37m/s [id number] Conclusion Technically good study. Difficult acoustic windows. Sinus rhythm noted. Biatrial enlargement with aortic root enlargement. Valves appear to be structurally normal. EF of 30% with notable global hypokinesis especially of the inferior basal segment. No pericardial effusion masses or vegetations. Moderate tricuspid regurgitation. Trace aortic insufficiency. Mild pulmonic insufficiency. No pericardial effusion masses or vegetations.
[2024-11-18 01:00] VITALS: BP 119/55; PULSE 68; RESP 17; TEMP 98.1; O2SAT 92
[2024-11-18 05:00] VITALS: BP 108/63; PULSE 63; RESP 17; TEMP 98; O2SAT 92
[2024-11-18 07:09] LABS: Basophils # (auto) 0 10 ^3/uL (0-0.2); Basophils % (auto) 0.4 % (0.0-2.0); Eosinophils # (auto) 0.2 10 ^3/uL (0-0.8); Eosinophils % (auto) 3.5 % (0.0-7.0); Hematocrit 40.4 % (41.0-53.0); Hemoglobin 13.6 g/dL (13.5-17.5); Lymphocytes # (auto) 1.4 10 ^3/uL (0.4-5.4); Lymphocytes % (auto) 24.6 % (10.0-50.0); Mean Corpuscular Hgb Conc. 33.6 g/dL (32.0-36.0); Mean Corpuscular Volume 89.4 fL (80.0-100.0); Monocytes # (auto) 0.7 10 ^3/uL (0-1.3); Monocytes % (auto) 12.9 % (0.0-12.0); Neutrophils # (auto) 3.4 10 ^3/uL (1.6-8.6); Neutrophils % (auto) 58.6 % (37.0-80.0); Nucleated Red Blood Cells % 0.1 %; Platelet Count (auto) 186 10^3/uL (140-450); Red Blood Cells 4.52 10^6/uL (4.5-5.90); Red Cell Distribution Width 15.2 % (11.8-14.3); White Blood Cell 5.7 10^3/uL (4.4-10.8)
[2024-11-18 07:12] LABS: Alanine Aminotransferase 18 U/L (7-40); Albumin 4.1 g/dL (3.2-4.8); Alkaline Phosphatase 57 U/L (46-116); Anion Gap 10 (5-15); Aspartate Aminotransferase 28 U/L (13-40); BUN/Creatinine Ratio 9.9 (10.0-20.0); Blood Urea Nitrogen 13 mg/dL (9-23); Calcium 9.1 mg/dL (8.7-10.4); Carbon Dioxide 21 mmol/L (20-31); Glucose 101 mg/dL (74-106); Sodium 143 mmol/L (136-145)
[2024-11-18 07:15] LABS: Chloride 112 mmol/L (98-107); Total Protein 6.1 g/dL (5.7-8.2)
[2024-11-18 07:16] LABS: Bilirubin, Total 0.8 mg/dL (0.2-1.0)
[2024-11-18 08:00] VITALS: PULSE 55; PULSE 90; RESP 18
[2024-11-18 08:59] VITALS: BP 125/69; PULSE 56; RESP 20; TEMP 97.9; O2SAT 92
--- NOTE | 2024-11-18 09:37 | DVHPN2 ---
Reviewed: Care Plan, H&P, Labs, Medications, Previous Orders, Radiology Changes from previous H/P or p: No Changes Eyes: No Pain, No Vision change, No Conjunctivae inflammation, No Eyelid inflammation, No Other, No Redness ENT: No Ear pain, No Ear discharge, No Nose pain, No Nose discharge, No Nose congestion, No Mouth pain, No Mouth swelling, No Throat pain, No Throat swelling, No Other Cardiovascular: Chest Pain; No Palpitations, No Orthopnea, No Paroxysmal Noc. Dyspnea, No Edema, No Lt Headedness, No Other Respiratory: No Cough, No Dry, No Shortness of breath, No SOB with excertion, No Wheezing, No Hemoptysis, No Pleuritic Pain, No Sputum, No Other Gastrointestinal: No Nausea, No Vomiting, No Abdominal Pain, No Diarrhea, No Constipation, No Melena, No Hematochezia, No Other Genitourinary: No Dysuria, No Frequency, No Incontinence, No Hematuria, No Retention, No Other Musculoskeletal: No other, No neck pain, No shoulder pain, No arm pain, No back pain, No hand pain, No leg pain, No foot pain Skin: No Rash, No Lesions, No Jaundice, No Bruising, No Other Objective Vitals Vital Signs Date Time Temp Pulse Resp B/P (MAP) Pulse Ox O2 Delivery O2 Flow Rate FiO2 11/18/24 08:59 97.9 56 20 125/69 (87) 92 97.9 11/17/24 20:00 Room Air* 0 21 Intake/Output Intake and Output 11/18/24 07:00 Intake Total 872 ml Output Total 350 ml Balance 522 ml Intake Oral 800 ml IV Total 72 ml Output Urine Total 350 ml # Voids 4 Medications Current Medications Medications Dose Ordered Sig/Tiffanie Route Start Time Stop Time Status Last Admin Dose Admin Sodium Chloride 10 ml Q8HR IV 11/16/24 22:00 11/18/24 05:41 10 ML Acetaminophen/ Hydrocodone Bitart 1 tab Q4HP PRN PO 11/16/24 15:15 Ondansetron HCl 4 mg Q4HP PRN IV 11/16/24 15:15 Docusate Sodium 100 mg BIDPRN PRN PO 11/16/24 15:15 Acetaminophen 650 mg Q6HP PRN PO 11/16/24 15:15 Nitroglycerin 0.4 mg Q5MINP PRN SL 11/16/24 15:15 Morphine Sulfate 2 mg Q30M PRN IV 11/16/24 15:15 Metoprolol Succinate 50 mg DAILY PO 11/17/24 10:00 Allopurinol 300 mg DAILY PO 11/17/24 10:00 11/18/24 07:47 300 MG Atorvastatin Calcium 80 mg HS PO 11/16/24 22:00 11/17/24 22:07 80 MG Clopidogrel Bisulfate 75 mg DAILY PO 11/17/24 10:00 11/18/24 07:49 75 MG Hydralazine HCl 10 mg Q6HP PRN IV 11/16/24 18:00 Dorzolamide HCl 1 drop TID EACHEYE 11/16/24 22:00 Laboratory Results Laboratory Tests 11/18/24 06:20 Chemistry Test 11/18/24 06:20 Albumin 4.1 g/dL (3.2-4.8) Calcium Level 9.1 mg/dL (8.7-10.4) Total Protein 6.1 g/dL (5.7-8.2) Coagulation Test 11/17/24 10:10 11/17/24 16:30 Prothrombin Time 10.9 sec (9.3-11.8) 10.9 sec (9.3-11.8) Prothrombin Time INR 1.03 (0.9-1.15) 1.03 (0.9-1.15) Activated Partial Thromboplast Time 51.8 SEC (24.5-34.5) H 48.7 SEC (24.5-34.5) H LFT Test 11/18/24 06:20 Alanine Aminotransferase (ALT) 18 U/L (7-40) Alkaline Phosphatase 57 U/L (46-116) Aspartate Amino Transferase (AST) 28 U/L (13-40) Total Bilirubin 0.8 mg/dL (0.2-1.0) Urinalysis Test 11/16/24 10:57 Urine Color Light-yellow (Yellow) Urine Clarity Clear (Clear) Urine pH 7.0 (5.0-9.0) Urine Specific [place] 1.012 (1.001-1.035) Urine Protein Trace (Negative) H Urine Ketones Negative (Negative) Urine Blood Trace /uL (Negative) H Urine Nitrite Negative (Negative) Urine Bilirubin Negative (Negative) Urine Urobilinogen Normal mg/dL (Negative) Urine Leukocyte Esterase Negative /uL (Negative) Urine RBC 1 /hpf (0 - 3) Urine Microscopic WBC < 1 /HPF (0-3) Urine Squamous Epithelial Cells None seen /hpf (<5) Urine Bacteria None seen /hpf (None Seen) Urine Glucose Normal mg/dL (Normal) Labs and/or images reviewed: Labs reviewed by me, Image(s) reviewed by me Assessment/Plan Assessment/Plan Non ST-elevation myocardial infarction> status post left heart catheterization by Dr. Castillo with stenting of LAD, thrombectomy of the distal RCA and PTCA and stenting of distal RCA on 11/17/2024 Rule out progressive coronary artery disease Severe CAD s/p PTCA including 2DES and balloon angioplasty, on Plavix therapy Unspecified history of blood clot, on Xarelto therapy Hypertension Dyslipidemia Severe right hip arthritis (awaiting repair) Morbid obesity Time Spent 40 minutes Advanced care planning time 20 minutes Patient is full code Patient is asymptomatic and walking in the lobby without any symptoms and willing to be discharged home Advised RN Ty to discharge patient after clearance from Dr. Castillo. Plan discussed with: Patient Date of Service: Nov 18, 2024 Billing Provider: DORY WILCOX MD Common Visit Codes: [id number] INP/OBS CARE(HIGH) DORY WILCOX MD Nov 18, 2024 09:37
--- NOTE | 2024-11-18 09:51 | DVHDS2 ---
Discharge Summary Date of Admission Nov 16, 2024 at 15:11 Date of Discharge: Nov 18, 2024 Admitting Diagnosis Chest pain Wounds: Left heart catheterization Labs/Diagnostic Data: Laboratory Results Test 11/18/24 06:20 11/17/24 16:30 11/17/24 06:45 11/16/24 10:57 White Blood Count 5.7 10^3/uL (4.4-10.8) Red Blood Count 4.52 10^6/uL (4.5-5.90) Hemoglobin 13.6 g/dL (13.5-17.5) Hematocrit 40.4 % (41.0-53.0) Mean Corpuscular Volume 89.4 fL (80.0-100.0) Mean Corpuscular Hemoglobin 30.0 pg (28.0-32.0) Mean Corpuscular Hemoglobin Concent 33.6 g/dL (32.0-36.0) Red Cell Distribution Width 15.2 % (11.8-14.3) Platelet Count 186 10^3/uL (140-450) Mean Platelet Volume 8.0 fL (6.9-10.8) Neutrophils (%) (Auto) 58.6 % (37.0-80.0) Lymphocytes (%) (Auto) 24.6 % (10.0-50.0) Monocytes (%) (Auto) 12.9 % (0.0-12.0) Eosinophils (%) (Auto) 3.5 % (0.0-7.0) Basophils (%) (Auto) 0.4 % (0.0-2.0) Neutrophils # (Auto) 3.4 10 ^3/uL (1.6-8.6) Lymphocytes # (Auto) 1.4 10 ^3/uL (0.4-5.4) Monocytes # (Auto) 0.7 10 ^3/uL (0-1.3) Eosinophils # (Auto) 0.2 10 ^3/uL (0-0.8) Basophils # (Auto) 0 10 ^3/uL (0-0.2) Nucleated Red Blood Cells 0.1 % Sodium Level 143 mmol/L (136-145) Potassium Level 4.0 mmol/L (3.5-5.1) Chloride Level 112 mmol/L (98-107) Carbon Dioxide Level 21 mmol/L (20-31) Anion Gap 10 (5-15) Blood Urea Nitrogen 13 mg/dL (9-23) Creatinine 1.31 mg/dL (0.700-1.30) Glomerular Filtration Rate Calc 62 mL/min (>90) BUN/Creatinine Ratio 9.9 (10.0-20.0) Serum Glucose 101 mg/dL (74-106) Calcium Level 9.1 mg/dL (8.7-10.4) Total Bilirubin 0.8 mg/dL (0.2-1.0) Aspartate Amino Transferase (AST) 28 U/L (13-40) Alanine Aminotransferase (ALT) 18 U/L (7-40) Alkaline Phosphatase 57 U/L (46-116) Total Protein 6.1 g/dL (5.7-8.2) Albumin 4.1 g/dL (3.2-4.8) Prothrombin Time 10.9 sec (9.3-11.8) Prothrombin Time INR 1.03 (0.9-1.15) Activated Partial Thromboplast Time 48.7 SEC (24.5-34.5) Troponin I High Sensitivity 2346 ng/L (</=54) Urine Color Light-yellow (Yellow) Urine Clarity Clear (Clear) Urine pH 7.0 (5.0-9.0) Urine Specific [place] 1.012 (1.001-1.035) Urine Protein Trace (Negative) Urine Ketones Negative (Negative) Urine Blood Trace /uL (Negative) Urine Nitrite Negative (Negative) Urine Bilirubin Negative (Negative) Urine Urobilinogen Normal mg/dL (Negative) Urine Leukocyte Esterase Negative /uL (Negative) Urine RBC 1 /hpf (0 - 3) Urine Microscopic WBC < 1 /HPF (0-3) Urine Squamous Epithelial Cells None seen /hpf (<5) Urine Bacteria None seen /hpf (None Seen) Urine Glucose Normal mg/dL (Normal) Test 11/16/24 08:52 Platelet Estimate Adequate Hemoglobin A1c 5.9 % A1C (<5.7) Magnesium Level 2.1 mg/dL (1.6-2.6) B-Type Natriuretic Peptide 15.94 pg/mL (0-100) Triglycerides Level 63 mg/dL (< 150) Cholesterol Level 102 mg/dL (< 200) LDL Cholesterol 40 mg/dL (< 100) HDL Cholesterol 50 mg/dL (40-59) Thyroid Stimulating Hormone (TSH) 1.74 uIU/mL (0.55-4.78) Other Laboratory Tests 11/18/24 06:20 Brief Hx & Hospital Course: 59 year old male with a history of coronary artery disease status post PTCA with a two JENNIFER and balloon angioplasty on Plavix therapy also on Xarelto for unspecified history of blood clots came in complaining of chest pain found to have non elevation NC and underwent left heart catheterization by Dr. castillo with the stenting of LAD thrombectomy of distal RCA and stenting of distal RCA on 11/17/2024. Postop he was placed back on Xarelto Plavix Toprol-XL and Lipitor. At the time of discharge patient is ambulating in the hallway without any symptoms. Discharged home to resume all his previous home medications and follow up with Dr. Castillo. RN Ty was advised to discharge the patient after clearance by Dr. Castillo. Consults/Reason for consult Cardiology Dr. Castillo Operations or Procedures Left heart catheterization Condition at Discharge: Fair Final Diagnosis/Problems List Non ST-elevation myocardial infarction> status post left heart catheterization by Dr. Castillo with stenting of LAD, thrombectomy of the distal RCA and PTCA and stenting of distal RCA on 11/17/2024 Rule out progressive coronary artery disease Severe CAD s/p PTCA including 2DES and balloon angioplasty, on Plavix therapy Unspecified history of blood clot, on Xarelto therapy Hypertension Dyslipidemia Severe right hip arthritis (awaiting repair) Morbid obesity Discharge Disposition: Home Discharge Instruct/Medications Diet: Cardiac 2g Na,low cholest Activity: Light activity Follow Up/Referral: Follow up with your primary Dr in one week Resume all previous home medications including Xarelto Plavix Crestor Toprol-XL and Crestor Follow up with service station manager Dr Castillo in two weeks 39 (Time taken for discharge summary 39 minutes) Discharge Statement: "Patient was advised to return to the ER or call 911 if any headaches, dizziness, shortness of breath, chest pain, abdominal pain, bleeding, fevers, or worsening of medical condition. Patient was counseled about treatment plan, medications, possible side effects, patientverbalized understanding. All questions were answered to the best of my ability. This discharge took greater then 30 minutes in planning, reviewing documentation, counseling the patient, and discussing with other team members." ASSESSMENT ASSESSMENT Hospital Course Improved Assessment Non ST-elevation myocardial infarction> status post left heart catheterization by Dr. Castillo with stenting of LAD, thrombectomy of the distal RCA and PTCA and stenting of distal RCA on 11/17/2024 Rule out progressive coronary artery disease Severe CAD s/p PTCA including 2DES and balloon angioplasty, on Plavix therapy Unspecified history of blood clot, on Xarelto therapy Hypertension Dyslipidemia Severe right hip arthritis (awaiting repair) Morbid obesity Date of Service: Nov 18, 2024 Billing Provider: DORY WILCOX MD Common Visit Codes: 99251-CFI/OBS DISCH DAY >30min DORY WILCOX MD Nov 18, 2024 09:51
[2024-11-18 12:10] VITALS: BP 120/69; PULSE 69; RESP 20; TEMP 97.9; O2SAT 97
--- NOTE | 2024-11-18 12:43 | DVHPN2 ---
Consult Progress Note Date Seen: Nov 18, 2024 Subjective Review of Systems: CVS:Normal, RESPIRATORY:Normal, NEURO:Normal Objective vital signs Vital Sign Date Time Temp Pulse Resp B/P (MAP) Pulse Ox O2 Delivery O2 Flow Rate FiO2 11/18/24 12:10 97.9 69 20 97 11/18/24 08:59 125/69 (87) 11/18/24 08:00 Room Air* 0 21 Total Intake and Output 11/17/24 11/17/24 11/18/24 15:00 23:00 07:00 Intake Total 72 ml 300 ml 500 ml Output Total 350 ml Balance 72 ml 300 ml 150 ml medications Current Medications Medications Dose Ordered Sig/Tiffanie Route Start Time Stop Time Status Last Admin Dose Admin Sodium Chloride 10 ml Q8HR IV 11/16/24 22:00 11/18/24 10:40 10 ML Acetaminophen/ Hydrocodone Bitart 1 tab Q4HP PRN PO 11/16/24 15:15 Ondansetron HCl 4 mg Q4HP PRN IV 11/16/24 15:15 Docusate Sodium 100 mg BIDPRN PRN PO 11/16/24 15:15 Acetaminophen 650 mg Q6HP PRN PO 11/16/24 15:15 Nitroglycerin 0.4 mg Q5MINP PRN SL 11/16/24 15:15 Morphine Sulfate 2 mg Q30M PRN IV 11/16/24 15:15 Metoprolol Succinate 50 mg DAILY PO 11/17/24 10:00 Allopurinol 300 mg DAILY PO 11/17/24 10:00 11/18/24 07:47 300 MG Atorvastatin Calcium 80 mg HS PO 11/16/24 22:00 11/17/24 22:07 80 MG Clopidogrel Bisulfate 75 mg DAILY PO 11/17/24 10:00 11/18/24 07:49 75 MG Hydralazine HCl 10 mg Q6HP PRN IV 11/16/24 18:00 Dorzolamide HCl 1 drop TID EACHEYE 11/16/24 22:00 Examination: LUNGS:Normal, CVS:Normal, NEURO:Normal laboratory and microbiology Laboratory Tests 11/18/24 06:20 Test 11/18/24 06:20 Range/Units Serum Glucose 101 74-106 mg/dL Problem List/Assessment/Plan Problem List/Assessment/Plan Non ST-elevation myocardial infarction status post PCI of the LAD/posterolateral branch x 2DES and thrombectomy of the distal RCA/posterolateral branch Severe CAD s/p PTCA including 2DES and balloon angioplasty, on Plavix therapy Unspecified history of blood clot, on Xarelto therapy Chronic compensated HFrEF on GDMT Hypertension Dyslipidemia Severe right hip arthritis (awaiting repair) Morbid obesity Plan/Recommendation (Dr. Castillo) Transthoracic echocardiogram revealed EF 30% with notable global hypokinesis of the inferior basal segment. Continue GDMT for CHF and uptitrate as tolerated. Continue Plavix, Xarelto therapy, lipid lowering agent, and beta-trevon. If no improvement in LVEF with three months of GDMT for CHF, the patient may be a candidate for an ICD implantation. Follow-up with primary track machine operator repairer Dr. Steward within 1-2 weeks post-discharge. Thank you for allowing us to participate in this patient's care. Please call if you have any questions or concerns. This medical document was created using an electronic medical record system with voice recognition software and computerized dictation system. Although this document has been carefully reviewed, there might still be some phonetic and typographical errors. Occasional wrong-word or ``sound-alike substitutions may have occurred due to the inherent limitations of voice recognition software. These areas are purely typographical due to imperfections of the software programs and do not reflect any compromise in the patient's medical care. Please read the chart carefully and recognize, using context, where these substitutions have occurred. Plan discussed with: Patient, Other Date of Service: Nov 18, 2024 Billing Provider: CLEMENCIA WEEMS Cardiology Common Codes: [id number] [facility](High CLEMENCIA WEEMS Nov 18, 2024 12:43
== END 2024-11-18 12:53 | disposition home or self-care (01) | DRG 321 ==
LOC: ER 08:44 → TELE 15:11 → TELE-CENTR 11-17 03:00
PROVIDERS: ADMIT Nurse Practitioner Family; ATTEND Family Medicine
PROC: 027035Z Dilation of Coronary Artery, One Artery with Two Drug-eluting Intraluminal Devices, Percutaneous Approach (ICD-10-PCS; principal; 2024-11-17)
PROC: 02C03ZZ Extirpation of Matter from Coronary Artery, One Artery, Percutaneous Approach (ICD-10-PCS; 2024-11-17)
PROC: B240ZZ3 Ultrasonography of Single Coronary Artery, Intravascular (ICD-10-PCS; 2024-11-17)
PROC: B2111ZZ Fluoroscopy of Multiple Coronary Arteries using Low Osmolar Contrast (ICD-10-PCS; 2024-11-17)
PROC: B2151ZZ Fluoroscopy of Left Heart using Low Osmolar Contrast (ICD-10-PCS; 2024-11-17)
PROC: 4A023N7 Measurement of Cardiac Sampling and Pressure, Left Heart, Percutaneous Approach (ICD-10-PCS; 2024-11-17)
DX: I21.4 Non-ST elevation (NSTEMI) myocardial infarction (principal); I50.43 Acute on chronic combined systolic (congestive) and diastolic (congestive) heart failure; Z68.41 Body mass index [BMI] 40.0-44.9, adult; I25.10 Atherosclerotic heart disease of native coronary artery without angina pectoris; E66.01 Morbid (severe) obesity due to excess calories; E78.5 Hyperlipidemia, unspecified; M10.9 Gout, unspecified; M16.11 Unilateral primary osteoarthritis, right hip; I25.2 Old myocardial infarction; Z79.01 Long term (current) use of anticoagulants; Z86.718 Personal history of other venous thrombosis and embolism; Z95.5 Presence of coronary angioplasty implant and graft; I11.0 Hypertensive heart disease with heart failure
CPT/HCPCS: 36415; 71045; 80053; 80061; 81001; 83036; 83735; 83880; 84443; 84484; 85025; 85610; 85730; 86850; 86900; 86901; 92941; 92973; 93005; 93306; 93458; 96365; 99152; C1874; G0378; J2250; Q9967